=== PATIENT | female | born 1950 | race Two or more races ===

== ENCOUNTER 2017-10-27 10:42 | Outpatient (CLI) | payer OTHER | END 2017-10-27 11:13 | disposition home or self-care (01) | LOC: LAB 10:42 | DX: M85.80 Other specified disorders of bone density and structure, unspecified site (principal); I11.9 Hypertensive heart disease without heart failure; E78.00 Pure hypercholesterolemia, unspecified; E55.9 Vitamin D deficiency, unspecified ==

== ENCOUNTER 2018-10-29 09:13 | Outpatient (CLI) | payer OTHER | END 2018-10-29 09:20 | disposition home or self-care (01) | LOC: LAB 09:13 | DX: E03.8 Other specified hypothyroidism (principal); E78.2 Mixed hyperlipidemia; I11.9 Hypertensive heart disease without heart failure; E78.00 Pure hypercholesterolemia, unspecified ==

== ENCOUNTER 2018-11-18 13:11 | Outpatient (CLI) | payer OTHER | END 2018-11-18 14:15 | disposition home or self-care (01) | LOC: MAMO-SONO 13:11 | DX: Z12.31 Encounter for screening mammogram for malignant neoplasm of breast (principal); Z87.898 Personal history of other specified conditions; N63.10 Unspecified lump in the right breast, unspecified quadrant; N63.20 Unspecified lump in the left breast, unspecified quadrant ==

== ENCOUNTER 2018-11-20 10:47 | Outpatient (CLI) | payer OTHER | END 2018-11-20 10:51 | disposition home or self-care (01) | LOC: NUCLEAR 10:47 | DX: M81.0 Age-related osteoporosis without current pathological fracture (principal); M85.80 Other specified disorders of bone density and structure, unspecified site ==

== ENCOUNTER → 2019-10-18 09:37 | Outpatient (CLI) | payer OTHER | END | disposition home or self-care (01) | LOC: LAB 09:37 | DX: E78.2 Mixed hyperlipidemia (principal); E78.00 Pure hypercholesterolemia, unspecified; K57.30 Diverticulosis of large intestine without perforation or abscess without bleeding; E03.8 Other specified hypothyroidism; I11.9 Hypertensive heart disease without heart failure ==

== ENCOUNTER 2019-10-27 08:43 | Outpatient (CLI) | payer OTHER | END 2019-10-27 08:50 | disposition home or self-care (01) | LOC: LAB 08:43 | DX: K29.70 Gastritis, unspecified, without bleeding (principal) ==

== ENCOUNTER → 2020-01-19 | Outpatient (CLI) | payer OTHER | END | disposition home or self-care (01) | LOC: MAMO-SONO 14:25 | DX: Z12.31 Encounter for screening mammogram for malignant neoplasm of breast (principal); Z87.898 Personal history of other specified conditions; N63.10 Unspecified lump in the right breast, unspecified quadrant; N63.20 Unspecified lump in the left breast, unspecified quadrant ==

== ENCOUNTER 2020-10-16 08:31 | Outpatient (CLI) | payer OTHER | END 2020-10-16 18:00 | disposition home or self-care (01) | LOC: LAB 08:31 | PROVIDERS: ATTEND Internal Medicine | DX: I11.9 Hypertensive heart disease without heart failure (principal); E55.9 Vitamin D deficiency, unspecified; E78.2 Mixed hyperlipidemia ==

== ENCOUNTER 2020-12-19 15:03 | Outpatient (CLI) | payer OTHER | END 2020-12-19 15:06 | disposition home or self-care (01) | LOC: NUCLEAR 15:03 | PROVIDERS: ATTEND Internal Medicine | DX: M85.80 Other specified disorders of bone density and structure, unspecified site (principal); M81.0 Age-related osteoporosis without current pathological fracture ==

== ENCOUNTER 2021-01-19 12:38 | Outpatient (CLI) | payer OTHER | END 2021-01-19 12:45 | disposition home or self-care (01) | LOC: MAMO-SONO 12:38 | PROVIDERS: ATTEND Internal Medicine | DX: Z12.31 Encounter for screening mammogram for malignant neoplasm of breast (principal); Z87.898 Personal history of other specified conditions; N63.10 Unspecified lump in the right breast, unspecified quadrant; N63.20 Unspecified lump in the left breast, unspecified quadrant ==

== ENCOUNTER → 2021-07-03 07:09 | Outpatient (CLI) | payer OTHER | END | disposition home or self-care (01) | LOC: LAB 07:09 | PROVIDERS: ATTEND Internal Medicine | DX: E78.2 Mixed hyperlipidemia (principal); E78.89 Other lipoprotein metabolism disorders; I11.9 Hypertensive heart disease without heart failure ==

== ENCOUNTER 2022-09-23 09:54 | Outpatient (CLI) | payer OTHER | END 2022-09-23 10:01 | disposition home or self-care (01) | LOC: LAB 09:54 | PROVIDERS: ATTEND Internal Medicine | DX: I11.9 Hypertensive heart disease without heart failure (principal); E55.9 Vitamin D deficiency, unspecified; E78.00 Pure hypercholesterolemia, unspecified; E04.1 Nontoxic single thyroid nodule; E66.9 Obesity, unspecified ==

== ENCOUNTER 2022-09-24 11:14 | Outpatient (CLI) | payer OTHER | END 2022-09-24 11:28 | disposition home or self-care (01) | LOC: MAMO-SONO 11:14 | PROVIDERS: ATTEND General Practice | DX: R92.2 Inconclusive mammogram (principal); N60.11 Diffuse cystic mastopathy of right breast; N60.12 Diffuse cystic mastopathy of left breast ==

== ENCOUNTER → 2022-12-23 | Outpatient (CLI) | payer OTHER | END | disposition home or self-care (01) | LOC: NUCLEAR 13:06 | PROVIDERS: ATTEND Internal Medicine | DX: M85.88 Other specified disorders of bone density and structure, other site (principal) ==

== ENCOUNTER 2023-02-24 09:08 | Outpatient (CLI) | payer OTHER | END 2023-02-24 09:18 | disposition home or self-care (01) | LOC: RAD 09:08 | PROVIDERS: ATTEND Physical Medicine & Rehabilitation Pediatric Rehabilitation Medicine | DX: M15.0 Primary generalized (osteo)arthritis (principal); M25.562 Pain in left knee | CPT/HCPCS: 73721 ==

== ENCOUNTER 2023-03-21 12:49 | Outpatient (CLI) | payer OTHER | END 2023-03-21 12:52 | disposition home or self-care (01) | LOC: MRI 12:49 | PROVIDERS: ATTEND Physical Medicine & Rehabilitation Pediatric Rehabilitation Medicine | DX: M15.0 Primary generalized (osteo)arthritis (principal) | CPT/HCPCS: 73718 ==

== ENCOUNTER 2023-05-07 10:30 | Outpatient (CLI) | payer OTHER | END 2023-05-07 10:33 | disposition home or self-care (01) | LOC: LAB 10:30 | PROVIDERS: ATTEND Internal Medicine | DX: D64.9 Anemia, unspecified (principal); K76.0 Fatty (change of) liver, not elsewhere classified; E78.5 Hyperlipidemia, unspecified; E11.69 Type 2 diabetes mellitus with other specified complication; E11.22 Type 2 diabetes mellitus with diabetic chronic kidney disease ==

== ENCOUNTER 2023-05-16 12:40 | Outpatient (CLI) | payer OTHER | END 2023-05-16 12:54 | disposition home or self-care (01) | LOC: MRI 12:40 | PROVIDERS: ATTEND Orthopaedic Surgery | DX: S83.201A Bucket-handle tear of unspecified meniscus, current injury, left knee, initial encounter (principal); M25.562 Pain in left knee; M25.561 Pain in right knee | CPT/HCPCS: 73718 ==

== ENCOUNTER → 2023-09-30 08:09 | Outpatient (CLI) | payer OTHER ==
[2023-09-30 09:20] LABS: URINE APPEARANCE Clear; URINE BILIRRUBIN Negative (NEGATIVE); URINE BLOOD Trace; URINE COLOR Yellow; URINE GLUCOSE Negative (NEGATIVE); URINE LEUKOCYTE Moderate; URINE NITRATE Negative; URINE PROTEIN Negative (NEGATIVE); URINE UROBILINOGEN 0.2 E.U./dl
[2023-09-30 09:20] LABS: HEMATOCRIT 39.2 % (36.0-45.00); HEMOGLOBIN 13.2 g/dL (12.0-15.00); MEAN CELL VOLUME 86.8 fL (80.00-100.00); MEAN CORPUSCULAR HEMOGLOBIN 29.1 pg (27.00-32.0); MEAN CORPUSCULAR HGB CONC 33.5 g/dl (32.0-36.0); PLATELET COUNT 291 K/uL (150-450); RED BLOOD COUNT 4.52 M/uL (4.00-6.00); RED CELL DISTRIBUTION WIDTH 14.8 % (11.5-14.5)
[2023-09-30 09:22] LABS: URINE BACTERIA 4015.3 uL (0.0-1933); URINE EPITHELIAL CELLS 4.9 uL (0.0-38.8); URINE RBC 10.6 uL (0.0-20.8)
[2023-09-30 09:54] LABS: ALBUMIN 3.7 gm/dL (3.4-5.0); BILIRUBIN TOTAL 0.88 mg/dL (0.3-1.2); CALCIUM 8.6 mg/dL (8.5-10.1); CHOL HDL RATIO 2.9 (0-5.0); CREATININE SERUM 0.54 mg/dL (0.55-1.02); GFR 110.66; GLOBULINA 2.9 G/DL (2.4-3.5); POTASSIUM 4.12 mEq/L (3.5-5.1); T4 TOTAL 10.2 UG/DL (4.8-13.9); TOTAL PROTEIN 6.6 gm/dL (6.4-8.2); TSH 1.66 uIU/mL (0.358-3.74)
== END | disposition home or self-care (01) ==
LOC: LAB 08:09
PROVIDERS: ATTEND Internal Medicine
DX: D64.9 Anemia, unspecified (principal); N39.0 Urinary tract infection, site not specified; E11.69 Type 2 diabetes mellitus with other specified complication; E03.9 Hypothyroidism, unspecified; E78.5 Hyperlipidemia, unspecified; E55.9 Vitamin D deficiency, unspecified

== ENCOUNTER 2023-09-30 12:45 | Outpatient (CLI) | payer OTHER | END 2023-09-30 12:51 | disposition home or self-care (01) | LOC: MAMO-SONO 12:45 | PROVIDERS: ATTEND Internal Medicine | DX: Z12.31 Encounter for screening mammogram for malignant neoplasm of breast (principal); N63.0 Unspecified lump in unspecified breast ==

== ENCOUNTER 2023-10-13 10:41 | Outpatient (CLI) | payer OTHER ==
[2023-10-13 11:31] LABS: URINE APPEARANCE Clear; URINE BILIRRUBIN Negative (NEGATIVE); URINE BLOOD Negative; URINE COLOR Yellow; URINE GLUCOSE Negative (NEGATIVE); URINE LEUKOCYTE Negative; URINE NITRATE Negative; URINE PROTEIN Negative (NEGATIVE); URINE UROBILINOGEN 0.2 E.U./dl
[2023-10-13 11:41] LABS: URINE BACTERIA 0 uL (0.0-1933); URINE EPITHELIAL CELLS 0.7 uL (0.0-38.8); URINE RBC 0.8 uL (0.0-20.8); URINE WBC 0.6 uL (0.0-23.2)
== END 2023-10-13 10:42 | disposition home or self-care (01) ==
LOC: LAB 10:41
PROVIDERS: ATTEND Internal Medicine
DX: N39.0 Urinary tract infection, site not specified (principal)

== ENCOUNTER 2024-10-04 12:45 | Outpatient (CLI) | payer OTHER | END 2024-10-04 13:02 | disposition home or self-care (01) | LOC: MAMO-SONO 12:45 | PROVIDERS: ATTEND Internal Medicine | DX: N63.0 Unspecified lump in unspecified breast (principal); Z12.31 Encounter for screening mammogram for malignant neoplasm of breast ==

== ENCOUNTER 2025-01-04 13:00 | Outpatient (CLI) | payer OTHER | END 2025-01-05 07:57 | disposition home or self-care (01) | LOC: NUCLEAR 13:00 | PROVIDERS: ATTEND Internal Medicine | DX: M85.80 Other specified disorders of bone density and structure, unspecified site (principal); M81.0 Age-related osteoporosis without current pathological fracture ==

== ENCOUNTER 2025-08-03 10:00 | Outpatient (CLI) | payer OTHER | END 2025-08-03 14:13 | disposition home or self-care (01) | LOC: RAD 10:00 | PROVIDERS: ATTEND Internal Medicine | DX: M02.0 Arthropathy following intestinal bypass (principal) ==